=== PATIENT | male | born 1970 | race Caucasian/White ===

== ENCOUNTER → 2019-08-28 11:26 | Outpatient (CLI) | payer OTHER, SELFPAY ==
--- NOTE | 2019-08-28 | DI.MRI.S_ITS ---
PROCEDURE: MR HEAD/BRAIN WO/W CON INDICATIONS: Other complicated headache syndrome TECHNIQUE: Noncontrast axial T1 spin echo, axial T2 fast spin echo, sagittal and axial FLAIR, coronal T2 fast spin echo, axial gradient echo, axial diffusion and ADC through the brain. After the administration of contrast, axial and coronal 3D VIBE or T1 spin echo with fat saturation through the brain. COMPARISON: None. FINDINGS: Image quality: Excellent. CSF Spaces: Basal cisterns are patent. No extra-axial fluid collections. Ventricles are normal in size and shape. Brain: No midline shift. No intracranial bleeds or masses. No abnormal intracranial enhancement. The brainstem appears normal. Diffusion-weighted images demonstrate no acute ischemic insults. No chronic ischemic insults. Normal intravascular flow voids are present. Skull and face: Calvarial marrow is normal in signal. Orbits appear normal. Sinuses: Sinuses and mastoids appear clear. IMPRESSION: No evidence of acute ischemia. No acute intracranial signal abnormality or enhancement. Dictated by: Nicko Brennan M.D. on 08/28/2019 at 13:27 Approved by: Nicko Brennan M.D. on 08/28/2019 at 13:33
== END ==
PROVIDERS: PCP Family Medicine; Visit Provider Family Medicine
DX: G44.59 Other complicated headache syndrome (principal)
CPT/HCPCS: 70553; A9579

== ENCOUNTER → 2025-08-10 10:39 | Outpatient (CLI) | payer OTHER, SELFPAY ==
--- NOTE | 2025-08-10 10:41 | DI.MRI.S_ITS ---
PROCEDURE: MR LUMBAR SPINE WO CON INDICATIONS: radiculopathy TECHNIQUE: Noncontrast sagittal T1 spin echo and T2 fast echo, sagittal STIR, and T2 fast spin echo through the lumbar spine. In cases with scoliosis, additional coronal T2 fast spin echo may be performed. COMPARISON: None. FINDINGS: Image quality: Excellent. Alignment and Curvature: There is normal bony alignment. Bone Marrow: Marrow is of normal overall signal. No acute vertebral body compression fractures. Spinal Cord: Conus medullaris terminates at the T12 level. Visualized cord demonstrates normal signal and size. Paraspinous Soft Tissues: No paravertebral masses. T12-L1: There is disc bulge and mild bilateral facet arthropathy, without significant spinal stenosis. L1-L2: There is disc bulge with a shallow left central protrusion. There is also mild bilateral facet arthropathy and ligamentum flavum thickening. There is mild left lateral recess stenosis. L2-L3: There is disc bulge as well as bilateral facet arthropathy and mild ligamentum flavum thickening. No significant superimposed spinal stenosis. L3-L4: There is disc bulge as well as bilateral facet arthropathy and ligamentum flavum thickening. There is mild central spinal stenosis and mild bilateral foraminal stenosis L4-L5: There is disc bulge with superimposed extrusion with sequestered disc fragment in the left lateral recess measuring 8 mm in craniocaudal extent and 6 x 5.5 mm in transverse diameter. This has migration inferiorly to the pedicular level. There is moderate left lateral recess stenosis with mass effect on the descending left L5 root. There is also bilateral facet arthropathy and ligamentum flavum thickening with mild bilateral foraminal stenosis, more on the right. L5-S1: There is bilateral facet arthropathy with mild left and [id number] right foraminal stenosis IMPRESSION: 1. Disc extrusion at L4-L5 with sequestered fragment in the left lateral recess with significant left lateral spinal stenosis at this level. 2. 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 Dictated by: Rupert Serrano M.D. on 08/12/2025 at 12:01 Approved by: Rupert Serrano M.D. on 08/12/2025 at 12:08
== END ==
LOC: MRI 10:41
PROVIDERS: PCP Physician Assistant; Referring Provider Physician Assistant; Visit Provider Physician Assistant
DX: M51.16 Intervertebral disc disorders with radiculopathy, lumbar region (principal); M48.061 Spinal stenosis, lumbar region without neurogenic claudication; M48.07 Spinal stenosis, lumbosacral region; M47.26 Other spondylosis with radiculopathy, lumbar region; M47.27 Other spondylosis with radiculopathy, lumbosacral region
CPT/HCPCS: 72148